=== PATIENT | female | born 1935 | race Caucasian/White ===

== ENCOUNTER 2021-01-11 16:02 | Emergency (ER) | payer OTHER, MEDICARE ==
[~2021-01-11] VITALS: Ht 157.5 cm; Wt 85.4 kg
[~2021-01-11 16:02] MED LIST: ACID CONTROL150 MG PO; ADULT ASPIRIN R81 MG PO; ALENDRONATE SOD70 MG PO; AMLODIPINE BES2.5 MG PO; B COMPLEX # 11 EACH PO; LISINOPRIL-HCT1 EAC2 PO; LUTEIN 15 MG S1 EACH PO; ONE-A-DAY ESSE1 EACH PO; PRAVACHOL20 MG PO; TYLENOL325 MG PO
[2021-01-11] MEDS ORDERED: HYDROCODON-ACE1 EA10 PO (17:37)
== END 2021-01-11 18:50 | disposition home or self-care (01) ==
LOC: ED 16:02
DX: S42.212A Unspecified displaced fracture of surgical neck of left humerus, initial encounter for closed fracture (principal); W01.10XA Fall on same level from slipping, tripping and stumbling with subsequent striking against unspecified object, initial encounter; Z88.8 Allergy status to other drugs, medicaments and biological substances; Z79.899 Other long term (current) drug therapy; Z79.82 Long term (current) use of aspirin
CPT/HCPCS: 73030; 96372; 99283-25; J3010